=== PATIENT | male | born 1990 | race Caucasian/White ===

== ENCOUNTER 2020-10-03 18:37 | Emergency (ER) | payer BC ==
--- NOTE | 2020-10-03 20:07 | ED ---
General Adult HPI - General Chief complaint: Upper Respiratory Infection Stated complaint: Covid+, cough Time Seen by Provider: 10/03/20 19:50 Source: patient, RN notes reviewed Mode of arrival: ambulatory Limitations: no limitations - History of Present Illness Initial comments: This a 29-year-old male presents emergency Department chief complaint of cough congestion. Patient states he's been sick for over 10 days. Patient did test positive for Covid 9 days ago. Patient states that he does have a history of asthma on Dulera and pro-air. Patient states that his bodyaches fevers chills nasal congestion has all resolved. Patient states she still has a cough and was concerned. - Related Data Allergies Allergy/AdvReac Type Severity Reaction Status Date / Time cefaclor [From [facility]] Allergy Unknown Verified 10/03/20 19:35 erythromycin base Allergy Rash/Hives Verified 10/03/20 19:35 Review of Systems ROS Statement: Those systems with pertinent positive or pertinent negative responses have been documented in the HPI. ROS Other: All systems not noted in ROS Statement are negative. Past Medical History Past Medical History: Asthma History of Any Multi-Drug Resistant Organisms: None Reported Past Surgical History: Ear Surgery, Tonsillectomy Additional Past Surgical History / Comment(s): dental surgery Past Psychological History: No Psychological Hx Reported Smoking Status: Never smoker Past Alcohol Use History: Occasional Past Drug Use History: None Reported General Exam Limitations: no limitations General appearance: alert, in no apparent distress Head exam: Present: atraumatic, normocephalic, normal inspection Eye exam: Present: normal appearance, PERRL, EOMI. Absent: scleral icterus, conjunctival injection, periorbital swelling ENT exam: Present: normal exam, normal oropharynx, mucous membranes moist Neck exam: Present: normal inspection, full ROM. Absent: tenderness, meningismus, lymphadenopathy Respiratory exam: Present: normal lung sounds bilaterally. Absent: respiratory distress, wheezes, rales, rhonchi, stridor Cardiovascular Exam: Present: regular rate, normal rhythm, normal heart sounds. Absent: systolic murmur, diastolic murmur, rubs, gallop, clicks Course Vital Signs 10/03/20 10/03/20 19:29 20:57 Temperature 97.8 F 99.2 F Pulse Rate 63 68 Respiratory 18 16 Rate Blood Pressure 149/101 152/97 O2 Sat by Pulse 99 99 Oximetry Medical Decision Making - Medical Decision Making 29-year-old male presents for cough x-rays unremarkable. Patient's cough is persistent from covid. Patient is very stable be discharged stable condition. Disposition Clinical Impression: COVID-19 Disposition: HOME SELF-CARE Condition: Stable Instructions (If sedation given, give patient instructions): Coronavirus Disease 2019 (COVID-19) Additional Instructions: Please return to the Emergency Department if symptoms worsen or any other concerns. Is patient prescribed a controlled substance at d/c from ED?: No Referrals: Nonstaff,Physician [Primary Care Provider] - 1-2 days Time of Disposition: 21:02
[2020-10-03 20:58] VITALS: BP 152/97; PULSE 68; RESP 16; TEMP 99.2
--- NOTE | 2020-10-03 22:05 | XR ---
EXAMINATION TYPE: XR chest 2V DATE OF EXAM: 10/03/2020 CLINICAL HISTORY: cough. Covid 19 positive. TECHNIQUE: Frontal and lateral view of the chest. COMPARISON: None FINDINGS: The cardiomediastinal silhouette is within normal limits for size. Pulmonary vasculature i s normal. There are subtle multifocal peripheral airspace opacities of the bilateral lungs. No pleura l effusion, or pneumothorax seen. The osseous structures are intact. IMPRESSION: Small scattered peripheral multifocal airspace opacities bilaterally, characteristic of Covid 19 pneumonitis.
== END 2020-10-03 21:10 | disposition home or self-care (01) ==
LOC: EC 18:37
DX: U07.1 COVID-19 (principal); J45.909 Unspecified asthma, uncomplicated
CPT/HCPCS: 71046; 99283